=== PATIENT | male | born 1960 | race Asian ===

== ENCOUNTER 2021-03-13 11:21 | Emergency (ER) | payer OTHER ==
[2021-03-13] MEDS ORDERED: Lidocaine 1% 30 ML SDV INJECT ONE (11:46)
[2021-03-13] MEDS ORDERED: Bacitracin Oint 1 GM U/D Packet TOP ONE (11:46)
[2021-03-13] MEDS ORDERED: Diphtheria,Pertussis(Acell),Tetanus Vaccine 0.5 ML Syringe IM ONE (11:47)
--- NOTE | 2021-03-13 12:03 | EDM.PDOC ---
ED HPI GENERAL MEDICAL PROBLEM - General Chief Complaint: Lower Extremity Injury/Pain Stated Complaint: RIGHT LEG INJURY, FISH HOOK Time Seen by Provider: 03/13/21 11:50 Source of Information: Reports: Patient History Limitations: Reports: No Limitations - History of Present Illness INITIAL COMMENTS - FREE TEXT/NARRATIVE: This 60 yo male patient reports to the ED due to a fishing hook being embedded in his right lower leg. Onset: Today Duration: Minutes: Location: Reports: Lower Extremity, Right Quality: Reports: Ache, Dull Severity: Mild Improves with: Reports: None Worsens with: Reports: None Context: Reports: Activity Associated Symptoms: Reports: No Other Symptoms Right Leg Pain Score (Numeric/FACES): 4 - Related Data Allergies Allergy/AdvReac Type Severity Reaction Status Date / Time No Known Allergies Allergy Verified 03/13/21 11:46 Home Meds: Home Meds . [No Known Home Meds] 03/13/21 [History] Past Medical History - Past Health History Medical/Surgical History: Denies Medical/Surgical History Social & Family History - Tobacco Use Tobacco Use Status *Q: Never Tobacco User - Caffeine Use Caffeine Use: Reports: Tea - Recreational Drug Use Recreational Drug Use: No Review of Systems - Review of Systems Review Of Systems: Comprehensive ROS is negative, except as noted in HPI. ED EXAM, GENERAL - Physical Exam Exam: See Below Exam Limited By: No Limitations General Appearance: Alert, WD/WN, Mild Distress Eye Exam: Bilateral Eye: EOMI, PERRL Ears: Normal External Exam, Hearing Grossly Normal Nose: Normal Inspection, No Blood Throat/Mouth: Normal Lips, Normal Teeth, Normal Voice, No Airway Compromise Head: Atraumatic, Normocephalic Neck: Full Range of Motion Respiratory/Chest: No Respiratory Distress, Lungs Clear, Normal Breath Sounds, No Accessory Muscle Use Cardiovascular: Normal Peripheral Pulses, Regular Rate, Rhythm (Male) Exam: Deferred Rectal (Males) Exam: Deferred Extremities: Leg Pain (Right lateral leg) Neurological: Alert, Oriented, CN II-XII Intact, Normal Cognition, Normal Gait, Normal Reflexes, No Motor/Sensory Deficits Psychiatric: Normal Affect, Normal Mood Skin Exam: Other (Fishing hook in right lower leg) Lymphatic: No Adenopathy ED TRAUMA EXTREMITY PROCEDURES - Foreign Body Removal Indication:: Fish hook in right lower leg Consent Obtained: Patient Performing Doctor:: José Luis Conrad Anesthesia Type: Local (Lidocaine 1% (2 mL used)) Findings:: Fishing hook was removed without incident using string method. Complications:: No Course - Vital Signs Last Recorded V/S: Last Vital Signs Temp 97.8 F 03/13/21 11:40 Pulse 78 03/13/21 11:40 Resp 14 03/13/21 11:40 BP 137/81 03/13/21 11:40 Pulse Ox 100 03/13/21 11:40 - Orders/Labs/Meds Orders: Active Orders 24 hr Category Date Time Status Vaccines to be Administered [RC] PER UNIT ROUTINE Care 03/13/21 11:47 Ordered Meds: Medications Discontinued Medications Generic Name Dose Route Start Last Admin Trade Name Freq PRN Reason Stop Dose Admin Bacitracin 1 dose 03/13/21 11:46 03/13/21 11:58 Bacitracin Oint 1 Gm U/D Packet TOP 03/13/21 11:47 1 dose ONETIME ONE Administration Diphtheria/Tetanus/Acell Pertussis 0.5 ml 03/13/21 11:47 03/13/21 11:55 Diphtheria,Pertussis(Acell),Tetanus Vaccine 0.5 Ml Syringe IM 03/13/21 11:48 0.5 ml .ONCE ONE Administration Lidocaine HCl 30 ml 03/13/21 11:46 03/13/21 11:55 Lidocaine 1% 30 Ml Sdv INJECT 03/13/21 11:47 5 ml ONETIME ONE Administration Departure - Departure Time of Disposition: 12:01 Disposition: Home, Self-Care 01 Condition: Fair Clinical Impression: Foreign body of skin of right lower leg - Discharge Information *PRESCRIPTION DRUG MONITORING PROGRAM REVIEWED*: Not Applicable *COPY OF PRESCRIPTION DRUG MONITORING REPORT IN PATIENT [place]: Not Applicable Forms: ED Department Discharge Care Plan Goals: The patient was advised of the examination results during the visit. The fishing hook was removed without incident during the visit. The patient was encouraged to keep the area clean and covered over the next 24 hours. The patient was given a Tetanus injection during the visit. If the patient has any additional symptoms or concerns, the patient should either return to the emergency department or visit his primary care facility. Sepsis Event Note (ED) - Evaluation Sepsis Screening Result: No Definite Risk - Focused Exam Vital Signs: Vital Signs Temp Pulse Resp BP Pulse Ox 03/13/21 11:40 97.8 F 78 14 137/81 100 - My Orders Last 24 Hours: My Active Orders 03/13/21 11:47 Vaccines to be Administered [RC] PER UNIT ROUTINE - Assessment/Plan Last 24 Hours: My Active Orders 03/13/21 11:47 Vaccines to be Administered [RC] PER UNIT ROUTINE
== END 2021-03-13 12:07 | disposition home or self-care (01) ==
LOC: DL.ED 11:21
DX: S80.851A Superficial foreign body, right lower leg, initial encounter (principal); Z23 Encounter for immunization; W45.8XXA Other foreign body or object entering through skin, initial encounter
CPT/HCPCS: 90471; 90715; 99283